=== PATIENT | female | born 1960 | race Caucasian/White ===

== ENCOUNTER 2022-04-24 14:52 | Outpatient (REF) | payer MEDICAID, SELFPAY ==
[2022-04-24 16:19] LABS: MANUAL DIFF FLAG NO
[2022-04-24 16:53] LABS: Basophils Absolute Auto 0.1 X10*3/uL (0.0-0.2); Basophils Percent Auto 0.6 % (0-2); Eosinophils Absolute Auto 0.2 X10*3/uL (0.0-0.4); Eosinophils Percent Auto 1.7 % (0-4); Hematocrit 48.4 % (37.0-47.0); Hemoglobin 16.3 g/dl (12.0-16.0); Imm Gran Abs Auto 0.03 X10*3/uL (0.00-0.03); Imm Gran Pct Auto 0.3 % (0.0-0.4); Lymphocytes Absolute Auto 1.7 X10*3/uL (1.2-4.9); Lymphocytes Percent Auto 15.7 % (20-40); Mean Corpuscular HGB Conc 33.7 g/dl (31.0-35.0); Mean Corpuscular Hemoglobin 31.4 pg (27.0-33.0); Mean Corpuscular Volume 93.3 fL (80.0-98.0); Mean Platelet Volume 9.5 fL (9.4-12.3); Monocytes Absolute Auto 0.6 X10*3/uL (0.1-1.2); Monocytes Percent Auto 5.1 % (2-11); Neutrophils Absolute Auto 8.3 x10*3/uL (2.0-8.3); Neutrophils Percent Auto 76.6 % (45-73); Platelet Count 330 X10*3/uL (160-400); Red Blood Count 5.19 X10*6/uL (4.20-5.50); Red Cell Distribution Width 13.6 % (11.0-16.0); White Blood Count 10.9 X10*3/uL (4.8-10.8)
[2022-04-24 17:01] LABS: Estimated Average Glucose 97 mg/dL
[2022-04-24 17:24] LABS: Anion Gap 15 (12-20); Blood Urea Nitrogen 21 mg/dL (9-16); Carbon Dioxide 22 mmol/L (22-29); Chloride 104 mmol/L (96-108); Estimated Glomerular Filt Rate > 60; Glucose Random 89 mg/dL (60-115); Sodium 137 mmol/L (135-145)
[2022-04-24 17:25] LABS: Alanine Aminotransferase 20 U/L (0-31); Albumin Level 4.6 g/dL (3.5-5.0); Alkaline Phosphatase 76 U/L (39-117); Aspartate Amino Transferase 17 U/L (5-31); Bilirubin Total 0.5 mg/dL (0.0-1.0); C Reactive Protein 0.25 mg/dL (< or = 0.50); Calcium 9.7 mg/dL (8.4-10.2); Total Protein 7.1 g/dL (6.5-8.0); Uric Acid 5.4 mg/dL (2.4-5.7)
[2022-04-24 17:42] LABS: Erythrocyte Sedimentation Rate 2 MM/HR (0-20)
[2022-04-26 19:04] LABS: TS Negative Control Passed; TS Panel A 0; TS Panel B 0; TS Positive Control Passed; TSpotTB Negative (Negative)
[2022-04-27 04:29] LABS: HBS Num1 144.24 mIU/mL (0-7.99); HBc Num1 0.16 S/CO (0.00-0.79); HBsAGNum1 0.26 S/CO (0.00-0.99); Hepatitis B Core Antibody Nonreactive (Nonreactive); Hepatitis B Surface Antigen Negative (Negative); ~HepC Num1 0.08 S/CO (0.00-0.79); ~Hepatitis A Antibody IgM Nonreactive (Nonreactive); ~Hepatitis B Surface Antibody REACTIVE (Nonreactive); ~Hepatitis C Antibody Nonreactive (Nonreactive)
[2022-04-27 14:09] LABS: Prot Elec - Albumin 4.5 g/dL (3.8-4.8); Prot Elec - Alpha1 0.3 g/dL (0.2-0.3); Prot Elec - Alpha2 0.6 g/dL (0.5-0.9); Prot Elec - Beta 1 0.4 g/dL (0.4-0.6); Prot Elec - Beta 2 0.3 g/dL (0.2-0.5); Prot Elec - Total Protein 7.1 g/dL (6.1-8.1)
[2022-04-28 14:09] LABS: Cardiolipin IgG Ab <2.0 GPL-U/mL; Cardiolipin IgM Ab <2.0 MPL-U/mL
[2022-04-29 13:43] LABS: Myeloperoxidase Antibody <1.0 AI; Proteinase 3 PR3 Antibodies <1.0 AI
[2022-04-29 15:33] LABS: Angiotensin Converting Enzyme 14 U/L (9-67)
[2022-04-29 15:37] LABS: IgA 123 mg/dL (47-310); IgG 1025 mg/dL (600-1640); IgM 73 mg/dL (50-300)
[2022-04-29 20:23] LABS: Beta-2 Glycoprotein IgA 2.3 U/mL (<20.0); Beta-2 Glycoprotein IgG <2.0 U/mL (<20.0); Beta-2 Glycoprotein IgM 2.6 U/mL (<20.0)
[2022-04-29 21:39] LABS: PTT (LAC) Screen 35 sec (<=40)
[2022-05-05 15:48] LABS: Centromere Protein A Ab <11 SI (<11); Centromere Protein B Ab <11 SI (<11); Fibrillarin Ab <11 SI (<11); PM SCL 100 Ab <11 SI (<11); PM SCL 75 Ab <11 SI (<11); RNA Polymerase III RP11 Ab <11 SI (<11); RNA Polymerase III RP155 Ab <11 SI (<11); SCL-70 Extractable Nuclear Ab <11 SI (<11); Th-To Ab <11 SI (<11); U1 SNRNP RNP 70KD <11 SI (<11); U1 SNRNP RNP A <11 SI (<11); U1 SNRNP RNP C <11 SI (<11)
== END 2022-04-24 14:53 | disposition home or self-care (01) ==
LOC: HO.LAB 14:52
PROVIDERS: PCP Family Medicine; Visit Provider Student in an Organized Health Care Education/Training Program
DX: M06.9 Rheumatoid arthritis, unspecified (principal); D68.61 Antiphospholipid syndrome; I77.6 Arteritis, unspecified; M25.571 Pain in right ankle and joints of right foot; M34.9 Systemic sclerosis, unspecified; M25.50 Pain in unspecified joint; B20 Human immunodeficiency virus [HIV] disease; E78.5 Hyperlipidemia, unspecified; I73.00 Raynaud's syndrome without gangrene; M54.2 Cervicalgia; M19.90 Unspecified osteoarthritis, unspecified site; Z13.1 Encounter for screening for diabetes mellitus; Z11.7 Encounter for testing for latent tuberculosis infection; Z11.59 Encounter for screening for other viral diseases; Z79.899 Other long term (current) drug therapy
CPT/HCPCS: 36415; 80053; 82164; 82784; 83036; 84165; 84182; 84550; 85025; 85597; 85613; 85652; 85730; 86021; 86140; 86146; 86147; 86235; 86334; 86481; 86704; 86706; 86709; 86803; 87340; 99202

== ENCOUNTER → 2022-05-29 09:16 | Outpatient (BNVA) | payer MEDICAID, SELFPAY | PROVIDERS: PCP Family Medicine; Visit Provider Student in an Organized Health Care Education/Training Program | DX: Z13.820 Encounter for screening for osteoporosis (principal); M85.80 Other specified disorders of bone density and structure, unspecified site; M35.3 Polymyalgia rheumatica; M19.90 Unspecified osteoarthritis, unspecified site; E78.2 Mixed hyperlipidemia; B20 Human immunodeficiency virus [HIV] disease; Z79.899 Other long term (current) drug therapy | CPT/HCPCS: 99212 ==